=== PATIENT | female | born 1950 | race Caucasian/White ===

== ENCOUNTER 2022-11-12 12:30 | Outpatient (CLI) | payer MEDICARE, SELFPAY ==
--- NOTE | 2022-11-12 13:00 | CRLHL7_ITS ---
For Patients: As a result of the Century Cures Act, medical imaging exams and procedure reports are released immediately into your electronic medical record. You may view this report before your referring provider. If you have questions, please contact your health care provider. DXA BONE MINERAL DENSITY STUDY Reason for exam: Osteopenia. Current height (in): 68.0. Weight (lb): 220. Menopause age: 52. Ethnicity: White. 1. Have you had a previous hip or vertebral fracture? No. 2. Have you had any fractures during your adult life which did not result from significant trauma (e.g., auto accident)? No. 3. Did either of your parents have a hip fracture? No. 4. Do you smoke? No. 5. Have you ever taken Glucocorticoids? No. 6. Do you have rheumatoid arthritis? No. 7. Do you have secondary osteoporosis? No. 8. Do you drink 3 or more alcoholic drinks per day? No. 9. Are you being treated for osteoporosis? No. 10. Have you ever taken any of the following medications: Actonel, Evista, Fosamax, Miacalcin, Reclast, Boniva, Forteo, HRT (i.e., estrogen/hormone therapy), Protelos, Prolia, Vitamin D, Calcium, other ??? please specify. ANSWER: No. 11. Do you have any of the following medical conditions: Anorexia or bulimia, asthma or emphysema, end stage renal disease, hyperparathyroidism, any seizure disorders, cancer, inflammatory bowel diseases, hysterectomy, other ??? please specify. ANSWER: No. 12. What was your maximum height (inches)? 70. 13. Do you perform weight bearing exercise regularly? No. 14. Do you regularly consume dairy products? Yes. 15. Do you drink caffeinated beverages? No. If female: 16. At what age did your period start? 13. 17. Are you premenopausal? No. 18. How many full-term pregnancies have you had? 0. 19. Have you ever missed your period for more than 6 months in a row (not including or menopause)? No. TECHNIQUE: Bone mineral density study was performed using the [employer]. FINDINGS: The results of the study expressed as bone mineral density (BMD) are as follows: Lumbar spine L2 to L3: BMD: 0.988 g/cm2. T-score: -0.6. Z-score: 1.6 Neck Left: BMD: 0.636 g/cm2. T-score: -1.9. Z-score: -0.0 Right: BMD: 0.597 g/cm2. T-score: -2.3. Z-score: -0.4 Total Left: BMD: 0.816 g/cm2. T-score: -1.0. Z-score: 0.5 Right: BMD: 0.785 g/cm2. T-score: -1.3. Z-score: 0.3 IMPRESSION: Osteopenia. *Comparison exams done prior to 04/2020 were performed on different unit, [employer]. COMPARISON: Compared with scan of 11/13/2020, the bone mineral density has decreased by 5.7 percent at the spine and increased by 1.7 percent at the hip. FRAX 10-year Fracture Risk Major Osteoporotic Fracture: 13% Hip Fracture: 2.8% Reported Risk Factors: [place] () Neck BMD=0.597, BMI= 33.5 Bc Carrillo M.D. Diagnostic Radiologist [email or web address] TIP/stanford [facility]yne/Dictated by: Bc Carrillo MD @ 11/12/2022 2:18:00 PM (Electronically Signed)
--- NOTE | 2022-11-12 14:00 | CRLHL7_ITS ---
For Patients: As a result of the Century Cures Act, medical imaging exams and procedure reports are released immediately into your electronic medical record. You may view this report before your referring provider. If you have questions, please contact your health care provider. BILATERAL SCREENING MAMMOGRAM WITH COMPUTER-AIDED DETECTION AND TOMOSYNTHESIS TECHNIQUE: CC and MLO views were obtained. These mammographic images have been obtained using full-field digital technique. These mammographic images were interpreted with the benefit of computer-aided detection. Breast Tomosynthesis was used in this interpretation. COMPARISON FILM: 11/13/20, 07/07/17, 03/09/16. FINDINGS: The breasts are heterogeneously dense, which may obscure small masses IMPRESSION: There is no radiographic evidence for malignancy. ASSESSMENT: BI-RADS Category 1: Negative RECOMMENDATION: Routine screening mammogram in 1 year. A lay language report of this examination will be provided to the patient. Bc Carrillo M.D. Diagnostic Radiologist [email or web address] Transcribed: 5:49 pm DW/Dictated by: Bc Carrillo MD @ 11/13/2022 10:05:00 AM (Electronically Signed)
== END 2022-11-12 12:31 | disposition home or self-care (01) ==
LOC: RAD 12:32
PROVIDERS: PCP Physician Assistant Medical; Visit Provider Physician Assistant Medical
DX: Z12.31 Encounter for screening mammogram for malignant neoplasm of breast (principal); R92.2 Inconclusive mammogram; M85.89 Other specified disorders of bone density and structure, multiple sites
CPT/HCPCS: 77063; 77067; 77080

== ENCOUNTER 2023-08-13 07:55 | Outpatient (CLI) | payer MEDICARE, SELFPAY | END 2023-08-13 07:56 | disposition home or self-care (01) | LOC: NFLDREF 08-17 09:16 | PROVIDERS: PCP Physician Assistant Medical; Referring Provider Physician Assistant Medical; Visit Provider Physician Assistant Medical | DX: Z00.00 Encounter for general adult medical examination without abnormal findings (principal); E03.8 Other specified hypothyroidism; E78.5 Hyperlipidemia, unspecified | CPT/HCPCS: 80053; 80061; 84439; 84443 ==

== ENCOUNTER 2024-05-18 11:01 | Outpatient (CLI) | payer MEDICARE, SELFPAY ==
--- NOTE | 2024-05-18 11:30 | CRLHL7_ITS ---
For Patients: As a result of the Century Cures Act, medical imaging exams and procedure reports are released immediately into your electronic medical record. You may view this report before your referring provider. If you have questions, please contact your health care provider. BILATERAL SCREENING MAMMOGRAM WITH COMPUTER-AIDED DETECTION AND TOMOSYNTHESIS TECHNIQUE: CC and MLO views were obtained. These mammographic images have been obtained using full-field digital technique. These mammographic images were interpreted with the benefit of computer-aided detection. Breast Tomosynthesis was used in this interpretation. COMPARISON FILM: 11/12/22, 11/13/20, 07/07/17. FINDINGS: The breasts are heterogeneously dense, which may obscure small masses. IMPRESSION: There is no radiographic evidence for malignancy. ASSESSMENT: BI-RADS Category 2: Benign RECOMMENDATION: Routine screening mammogram in 1 year. A lay language report of this examination will be provided to the patient. Bc Carrillo M.D. Diagnostic Radiologist [email or web address] SP/Dictated by: Bc Carrillo MD @ 05/18/2024 12:05:00 PM (Electronically Signed)
== END 2024-05-18 11:02 | disposition home or self-care (01) ==
LOC: MAMMO 11:02
PROVIDERS: PCP Physician Assistant Medical; Visit Provider Physician Assistant Medical
DX: Z12.31 Encounter for screening mammogram for malignant neoplasm of breast (principal); R92.2 Inconclusive mammogram
CPT/HCPCS: 77063; 77067

== ENCOUNTER 2024-07-18 07:49 | Outpatient (CLI) | payer MEDICARE, SELFPAY | END 2024-07-18 07:50 | disposition home or self-care (01) | LOC: NFLDREF 17:09 | PROVIDERS: PCP Physician Assistant Medical; Referring Provider Physician Assistant Medical; Visit Provider Physician Assistant Medical | DX: Z00.00 Encounter for general adult medical examination without abnormal findings (principal); E78.5 Hyperlipidemia, unspecified; E03.8 Other specified hypothyroidism; M85.80 Other specified disorders of bone density and structure, unspecified site | CPT/HCPCS: 80048; 80061; 84443 ==

== ENCOUNTER 2024-12-06 12:41 | Outpatient (CLI) | payer MEDICARE, SELFPAY ==
--- NOTE | 2024-12-06 13:30 | CRLHL7_ITS ---
For Patients: As a result of the Century Cures Act, medical imaging exams and procedure reports are released immediately into your electronic medical record. You may view this report before your referring provider. If you have questions, please contact your health care provider. XR DXA Bone Mineral Density (BMD) Reason for exam: Screening for osteoporosis. Current height (inches): 67.0 Weight (lbs.): 212.0 Menopause age: 52 Ethnicity: White 1. Have you had a previous hip or vertebral fracture? No. 2. Have you had any fractures during your adult life which did not result from significant trauma (e.g., auto accident)? No. 3. Did either of your parents have a hip fracture? No. 4. Do you smoke? No. 5. Have you ever taken Glucocorticoids? No. 6. Do you have rheumatoid arthritis? No. 7. Do you have secondary osteoporosis? No. 8. Do you drink 3 or more alcoholic drinks per day? No. 9. Are you being treated for osteoporosis? No. 10. Have you ever taken any of the following medications: Actonel, Evista, Fosamax, Miacalcin, Reclast, Boniva, Forteo, HRT (i.e., estrogen/hormone therapy), Protelos, Prolia, Vitamin D, Calcium, other ??? please specify. ANSWER: No. 11. Do you have any of the following medical conditions: Anorexia or bulimia, asthma or emphysema, end stage renal disease, hyperparathyroidism, any seizure disorders, cancer, inflammatory bowel diseases, hysterectomy, other ??? please specify. ANSWER: No. 12. What was your maximum height (inches)? 69. 13. Do you perform weightbearing exercise regularly? No. 14. Do you regularly consume dairy products? Yes. 15. Do you drink caffeinated beverages? No. 16. At what age did your period start? 13. 17. Are you premenopausal? No. 18. How many full-term pregnancies have you had? 0. 19. Have you ever missed your period for more than 6 months in a row (not including or menopause)? No. TECHNIQUE: Bone mineral density study was performed using the [employer]. FINDINGS: The results of the study expressed as bone mineral density (BMD) are as follows: Lumbar Spine L2 to L3: BMD: 1.003 g/cm2. T-score: -0.5. Z-score: 1.8. Neck Left: BMD: 0.655 g/cm2. T-score: -1.7. Z-score: 0.2. Right: BMD: 0.611 g/cm2. T-score: -2.1. Z-score: -0.1. Total Left: BMD: 0.840 g/cm2. T-score: -0.8. Z-score: 0.9. Right: BMD: 0.813 g/cm2. T-score: -1.1. Z-score: 0.6. IMPRESSION: Osteopenia. COMPARISON: Compared with scan of 11/12/2022, the bone mineral density has increased by 1.5% at the spine and increased by 3.2% at the hip. Compared with scan of 11/13/2020, the bone mineral density has decreased by 5.7% at the spine and increased by 1.7% at the hip. *Comparison exams done prior to 04/2020 were performed on different unit, [employer]. FRAX 10-year Fracture Risk Major Osteoporotic Fracture: 13% Hip Fracture: 3.0% Reported Risk Factors: [place] () Neck BMD = 0.611, BMI = 33.2 BC DUMONT M.D. Diagnostic Radiologist [email or web address] Transcribed: 12:[address]/Dictated by: Bc Dumont MD @ 12/07/2024 10:51:00 AM (Electronically Signed)
== END 2024-12-06 12:42 | disposition home or self-care (01) ==
LOC: RAD 12:43
PROVIDERS: PCP Physician Assistant Medical; Visit Provider Physician Assistant Medical
DX: Z13.820 Encounter for screening for osteoporosis (principal); M85.88 Other specified disorders of bone density and structure, other site
CPT/HCPCS: 77080

== ENCOUNTER 2025-06-19 14:23 | Outpatient (CLI) | payer MEDICARE, SELFPAY ==
--- NOTE | 2025-06-19 14:40 | CRLHL7_ITS ---
For Patients: As a result of the Century Cures Act, medical imaging exams and procedure reports are released immediately into your electronic medical record. You may view this report before your referring provider. If you have questions, please contact your health care provider. INDICATION: SCREENING MAMMOGRAM, ASYMPTOMATIC 75 Y/O FEMALE COMPARISON: 05/18/2024, 11/12/2022, 11/13/2020 TECHNIQUE: Digital mammogram in CC and MLO projections including computer-aided detection (CAD) and tomosynthesis. BREAST COMPOSITION: There are scattered areas of fibroglandular density. FINDINGS: No suspicious findings. ASSESSMENT: BI-RADS 1 Negative RECOMMENDATION: Annual screening mammogram. A lay language report of this examination will be provided to the patient. Dictated by: Merissa De La Cruz MD @ 06/21/2025 11:12:32 (Electronically Signed)
== END 2025-06-19 14:24 | disposition home or self-care (01) ==
LOC: MAMMO 14:24
PROVIDERS: PCP Physician Assistant Medical; Visit Provider Physician Assistant Medical
DX: Z12.31 Encounter for screening mammogram for malignant neoplasm of breast (principal)
CPT/HCPCS: 77063; 77067

== ENCOUNTER 2025-08-02 08:01 | Outpatient (CLI) | payer MEDICARE, SELFPAY | END 2025-08-02 08:02 | disposition home or self-care (01) | LOC: NFLDREF 08-08 07:36 | PROVIDERS: PCP Physician Assistant Medical; Referring Provider Physician Assistant Medical; Visit Provider Physician Assistant Medical | DX: Z00.00 Encounter for general adult medical examination without abnormal findings (principal); E78.5 Hyperlipidemia, unspecified; E03.8 Other specified hypothyroidism | CPT/HCPCS: 80053; 80061; 84443 ==

== ENCOUNTER 2025-08-21 10:12 | Outpatient (CLI) | payer MEDICARE, SELFPAY ==
--- NOTE | 2025-08-21 11:46 | P.ANES_ITS ---
Anesthesia Charges Start Date/Time Anesthesia Start Date: 08/21/25 Anesthesia Start Time: 11:27 Stop Date/Time Anesthesia Stop Date: 08/21/25 Anesthesia Stop Time: 11:44 Summary Extremes of Age - Over 70 or under 1: CONTACT CENTER REP Coding CPT Codes CPT Codes: ANES UPR GI NDSC PX NOS - 96497 ([id number]) P3 - PATIENT W/SEVERE SYS DISEASE, QK - DIRECTOR OF OCCUPATIONAL HEALTH 2-4 CNCRNT ANES PROC, QX - CONTACT CENTER REP SVC W/ MD MED DIRECTION Additional Codes: Summary - Extremes of Age - Over 70 or under 1: CONTACT CENTER REP ([id number])
--- NOTE | 2025-08-21 11:46 | W.ANESCHARGE ---
Anesthesia Charges Start Date/Time Anesthesia Start Date: 08/21/25 Anesthesia Start Time: 11:27 Stop Date/Time Anesthesia Stop Date: 08/21/25 Anesthesia Stop Time: 11:44 Summary Extremes of Age - Over 70 or under 1: JUSTICE COURT JUDGE Coding CPT Codes CPT Codes: ANES UPR GI NDSC PX NOS - 04990 ([id number]) P3 - PATIENT W/SEVERE SYS DISEASE, QK - FIELD TECHNICAL ASSISTANT 2-4 CNCRNT ANES PROC, QX - JUSTICE COURT JUDGE SVC W/ MD MED DIRECTION Additional Codes: Summary - Extremes of Age - Over 70 or under 1: JUSTICE COURT JUDGE ([id number])
--- NOTE | 2025-08-21 12:24 | W.ANESCHARGE ---
Anesthesia Charges Start Date/Time Anesthesia Start Date: 08/21/25 Anesthesia Start Time: 11:27 Stop Date/Time Anesthesia Stop Date: 08/21/25 Anesthesia Stop Time: 11:44 Summary Extremes of Age - Over 70 or under 1: MDA Coding CPT Codes CPT Codes: ANES UPR GI NDSC PX NOS - 10375 ([id number]) QK - [employer] SUPERVISOR 2-4 CNCRNT ANES PROC, QX - DIRECTOR CLINICAL INFORMATION SERVICES SVC W/ MD MED DIRECTION, P3 - PATIENT W/SEVERE SYS DISEASE Additional Codes: Summary - Extremes of Age - Over 70 or under 1: MDA ([id number])
== END 2025-08-21 10:13 | disposition home or self-care (01) ==
PROVIDERS: PCP Physician Assistant Medical; Visit Provider Surgery
DX: R13.10 Dysphagia, unspecified (principal); K44.9 Diaphragmatic hernia without obstruction or gangrene
CPT/HCPCS: 00731; 43239; 88305; 99100; J2704; J3490